=== PATIENT | female | born 1985 | race Caucasian/White ===

== ENCOUNTER 2020-11-07 16:13 | Emergency (ER) | payer MEDICAID ==
[2020-11-07] MEDS: cefTRIAXone 1 GM Vial IM ONE (16:48)
--- NOTE | 2020-11-07 16:50 | EDM.PDOC ---
ED HPI GENERAL MEDICAL PROBLEM - General Chief Complaint: General Stated Complaint: TOOTH ACHE Time Seen by Provider: 11/07/20 16:30 Source of Information: Reports: Patient History Limitations: Reports: No Limitations - History of Present Illness INITIAL COMMENTS - FREE TEXT/NARRATIVE: pt has cracked in one tooth on the right lower side , last 2 days developed pain swelling enderness of the gums in the area of the tooth , pain getting worse , but does not radiate to the cheeks, pt has no neck pain or swollen throat NO other concerns, Onset: Gradual Onset Date: 11/06/20 Duration: Day(s):, Getting Worse Location: Reports: Face Quality: Reports: Ache, Dull, Pressure Severity: Moderate Improves with: Reports: Cold Therapy Worsens with: Reports: Eating, Heat Therapy Context: Reports: Other (broken tooth) Associated Symptoms: Denies: Fever/Chills, Headaches Treatments [employer]: Reports: Acetaminophen - Related Data Allergies Allergy/AdvReac Type Severity Reaction Status Date / Time No Known Allergies Allergy Verified 11/07/20 16:46 Home Meds: Home Meds Clindamycin HCl 300 mg PO Q8HR #30 capsule 11/07/20 [Rx] Ketorolac [Toradol] 10 mg PO Q6H PRN #15 tab 11/07/20 [Rx] ED ROS GENERAL - Review of Systems Review Of Systems: See Below Constitutional: Reports: No Symptoms HEENT: Reports: No Symptoms Respiratory: Reports: No Symptoms Cardiovascular: Reports: No Symptoms Endocrine: Reports: No Symptoms GI/Abdominal: Reports: No Symptoms Musculoskeletal: Reports: No Symptoms Skin: Reports: No Symptoms Neurological: Reports: No Symptoms Psychiatric: Reports: No Symptoms ED EXAM, GENERAL - Physical Exam Exam: See Below Exam Limited By: No Limitations General Appearance: Alert, WD/WN, No Apparent Distress Eye Exam: Bilateral Eye: EOMI Ears: Normal External Exam Ear Exam: Right Ear: TM normal, Bilateral Ear: TM Dull Nose: Normal Inspection Throat/Mouth: Other (right lower molar with cracked tooth, caries, surrounding gingivitis) Head: Atraumatic, Normocephalic Neck: Supple, Non-Tender, Full Range of Motion Respiratory/Chest: Lungs Clear, Normal Breath Sounds GI/Abdominal: Soft, Non-Tender Extremities: Normal Inspection, Normal Range of Motion Neurological: Alert, Oriented, CN II-XII Intact Psychiatric: Normal Affect, Normal Mood Skin Exam: Warm, Dry, Intact Course - Vital Signs Last Recorded V/S: Last Vital Signs Temp 37.1 C 11/07/20 16:30 Pulse 92 11/07/20 17:05 Resp 20 11/07/20 17:05 BP 135/96 H 11/07/20 17:05 Pulse Ox 96 11/07/20 17:05 - Orders/Labs/Meds Meds: Medications Discontinued Medications Generic Name Dose Route Start Last Admin Trade Name Carline PRN Reason Stop Dose Admin Ceftriaxone Sodium 1 gm 11/07/20 16:44 11/07/20 16:48 Ceftriaxone 1 Gm Vial IM 11/07/20 16:45 1 gm ONETIME ONE Administration Ketorolac Tromethamine 60 mg 11/07/20 16:53 Ketorolac 30 Mg/Ml Sdv IM 11/07/20 16:54 ONETIME ONE - Re-Assessments/Exams Free Text/Narrative Re-Assessment/Exam: 11/07/20 16:48 pt given IM [email or web address] Departure - Departure Time of Disposition: 17:07 Disposition: Home, Self-Care 01 Condition: Fair Clinical Impression: Gingivitis, acute, Toothache, Abscessed tooth - Discharge Information *PRESCRIPTION DRUG MONITORING PROGRAM REVIEWED*: No *COPY OF PRESCRIPTION DRUG MONITORING REPORT IN PATIENT TALA: No Prescriptions: Clindamycin HCl 300 mg PO Q8HR #30 capsule Ketorolac [Toradol] 10 mg PO Q6H PRN #15 tab PRN Reason: Pain (Moderate 4-6) Instructions: Dental Abscess, [id number], Dental Abscess Referrals: PCP,None [Primary Care Provider] - Forms: ED Department Discharge Additional Instructions: 1) Warm salt water gurgles 3 times daily 2) make appointment to see the dentist and follow up 3) Call with any concerns Sepsis Event Note (ED) - Evaluation Sepsis Screening Result: No Definite Risk - Focused Exam Vital Signs: Vital Signs Temp Pulse Resp BP Pulse Ox 11/07/20 17:05 92 20 135/96 H 96 11/07/20 16:30 37.1 C 94 20 145/97 H 98
[2020-11-07] MEDS ORDERED: Ketorolac 30 MG/ML SDV IM ONE (16:53)
== END 2020-11-07 17:07 | disposition home or self-care (01) ==
LOC: FB.ED 16:13
DX: K04.7 Periapical abscess without sinus (principal); K02.9 Dental caries, unspecified; K05.00 Acute gingivitis, plaque induced
CPT/HCPCS: 96372; 99282; J0696

== ENCOUNTER 2021-07-10 05:28 | Emergency (ER) | payer MEDICAID ==
[2021-07-10] MEDS: Amoxicillin/Clavulanate K 875-125 MG Tab PO STA (05:44)
[2021-07-10] MEDS: Lidocaine 2% Viscous Solution 15 ML UD PO ONE (05:44)
[2021-07-10] MEDS: Ketorolac 30 MG/ML SDV IM ONE (06:19)
== END 2021-07-10 06:25 | disposition home or self-care (01) ==
LOC: FB.ED 05:28
DX: K04.7 Periapical abscess without sinus (principal)
CPT/HCPCS: 96372; 99282; 99283; A9270-GY; J1885

== ENCOUNTER 2021-09-06 18:12 | Emergency (ER) | payer MEDICAID ==
[2021-09-06] MEDS ORDERED: Ketorolac 30 MG/ML SDV IM ONE (18:32)
[2021-09-06] MEDS ORDERED: Ondansetron 4 MG Tab.DIS PO ONE (18:33)
== END 2021-09-06 20:05 | disposition home or self-care (01) ==
LOC: FB.ED 18:12
DX: R09.1 Pleurisy (principal)
CPT/HCPCS: 36415; 83690; 85027; 85379; 86140; 96372; 99284; J1885; Q0162